=== PATIENT | male | born 1975 | race Caucasian/White ===

== ENCOUNTER → 2016-11-15 | Outpatient (CLI) | payer OTHER | LOC: EXRD 11:26 | DX: M25.562 Pain in left knee (principal) | CPT/HCPCS: 73560 ==

== ENCOUNTER 2016-12-24 12:20 | Emergency (ER) | payer OTHER | END 2016-12-24 13:25 | disposition home or self-care (01) | LOC: ER1 12:20 | DX: S29.012A Strain of muscle and tendon of back wall of thorax, initial encounter (principal); E78.5 Hyperlipidemia, unspecified; F17.210 Nicotine dependence, cigarettes, uncomplicated; X50.0XXA Overexertion from strenuous movement or load, initial encounter; Z79.899 Other long term (current) drug therapy | CPT/HCPCS: 72072; 96372; 99283; J1100; J1885 ==

== ENCOUNTER 2017-02-18 10:10 | Emergency (ER) | payer OTHER | END 2017-02-18 12:43 | disposition home or self-care (01) | LOC: ER1 10:10 | DX: S93.401A Sprain of unspecified ligament of right ankle, initial encounter (principal); F17.200 Nicotine dependence, unspecified, uncomplicated; X50.1XXA Overexertion from prolonged static or awkward postures, initial encounter | CPT/HCPCS: 29515; 73610; 99283 ==